=== PATIENT | female | born 1945 | race Caucasian/White ===

== ENCOUNTER 2018-11-09 16:09 | Inpatient (IN) | payer MEDICARE, MEDICAID ==
[~2018-11-09] VITALS: Ht 152.4 cm; Wt 55.0 kg
[~2018-11-09 16:09] MED LIST: LEVO100T8 PO; OXYC-431 PO; QUET100T PO; VENL225T PO
[2018-11-09 16:20] VITALS: Ht 152.4 cm; Wt 55.0 kg
[2018-11-09] MEDS ORDERED: SOD CHLORIDE 0.9% 1,000 ML IV STA (16:26)
[2018-11-09] MEDS ORDERED: morphine 2 MG INJ IV STA (17:37)
[2018-11-09] MEDS ORDERED: ACETAMINOPHEN 325 MG TAB PO PRN (18:30)
[2018-11-09] MEDS ORDERED: ONDANSETRON 4 MG INJ IV PRN ×2 (18:30→19:00)
[2018-11-09] MEDS ORDERED: NACL 0.9% 3 ML SYG IV SCH (19:00)
[2018-11-09] MEDS: OXYCODONE/ACETAMINOPHEN (10/325) TAB PO PRN (19:37)
[2018-11-10] VITALS (10 sets, daily range): BP systolic 99–114; BP diastolic 54–61; PULSE 56–66; RESP 18–20
[2018-11-10] MEDS: OXYCODONE/ACETAMINOPHEN (10/325) TAB PO PRN ×4 (01:44→20:36)
[2018-11-10] MEDS: PANTOPRAZOLE (EC) 40 MG TAB PO SCH ×2 (06:47→08:41)
[2018-11-10] MEDS ORDERED: KETOROLAC 15 MG INJ IV PRN (11:30)
[2018-11-11 00:11] VITALS: BP 103/52; PULSE 65; RESP 18
[2018-11-11] MEDS: OXYCODONE/ACETAMINOPHEN (10/325) TAB PO PRN ×2 (03:36→10:00)
[2018-11-11 04:06] VITALS: BP 106/55; PULSE 57; RESP 18
[2018-11-11] MEDS: PANTOPRAZOLE (EC) 40 MG TAB PO SCH (05:48)
[2018-11-11] MEDS ORDERED: LEVOTHYROXINE 100 MCG TAB PO SCH (07:00)
[2018-11-11 15:26] VITALS: BP 136/56; PULSE 76; RESP 17
== END 2018-11-11 16:15 | disposition home or self-care (01) | DRG 392 ==
LOC: E/R 16:09 → TEL 18:08 → SUATTDRO 18:09
PROVIDERS: ADMIT Internal Medicine; ATTEND Internal Medicine
DX: K52.9 Noninfective gastroenteritis and colitis, unspecified (principal); K21.9 Gastro-esophageal reflux disease without esophagitis; R41.3 Other amnesia; R51 Headache; R10.84 Generalized abdominal pain; M54.9 Dorsalgia, unspecified; I25.2 Old myocardial infarction; T40.2X1A Poisoning by other opioids, accidental (unintentional), initial encounter; R41.82 Altered mental status, unspecified
CPT/HCPCS: 36415; 70450; 71045; 74176; 80053; 80061; 81001; 82962; 83036; 83735; 84100; 84439; 84443; 84484; 85025; 85610; 85730; 93005; 93970; 96374; J2270; J7030